=== PATIENT | female | born 1950 | race Caucasian/White ===

== ENCOUNTER 2017-08-22 13:08 | Outpatient (CLI) | payer MEDICARE | END 2017-08-22 23:59 | disposition home or self-care (01) | LOC: RAD 13:08 | DX: I70.0 Atherosclerosis of aorta (principal); M47.894 Other spondylosis, thoracic region; M89.9 Disorder of bone, unspecified | CPT/HCPCS: 71020-TC ==

== ENCOUNTER 2018-07-11 12:53 | Outpatient (CLI) | payer MEDICARE, OTHER | END 2018-07-11 23:59 | disposition home or self-care (01) | LOC: RAD 12:53 | DX: M17.0 Bilateral primary osteoarthritis of knee (principal); M85.861 Other specified disorders of bone density and structure, right lower leg; M85.862 Other specified disorders of bone density and structure, left lower leg | CPT/HCPCS: 73562 ==